=== PATIENT | male | born 1965 | race Caucasian/White ===

== ENCOUNTER 2018-02-03 10:14 | Emergency (ER) | payer OTHER, MEDICAID, MEDICARE ==
[2018-02-03 11:48] LABS: BILIRUBIN,URINE NEGATIVE (NEG); CLARITY,URINE CLOUDY; COLOR,URINE AMBER; GLUCOSE,URINE NEGATIVE (NEG); NITRITE,URINE NEGATIVE (NEG); PH,URINE 5.5; PROTEIN,URINE 30 mg/dL (NEG-TRACE); UROBILINOGEN,URINE 0.2 mg/dL (0.2 mg/dL)
[2018-02-03] MEDS: KETOROLAC 15 MG/ML VIAL. IV (11:56)
[2018-02-03] MEDS: HYDROcodone/APAP 5/325MG 1 TAB TABLET PO (11:57)
[2018-02-03] MEDS: ONDANSETRON ODT 4 MG TAB.RAPDIS. PO (11:57)
[2018-02-03 12:07] LABS: RBC,URINE >40 /HPF (0-2)
[2018-02-03 12:08] LABS: BACTERIA,URINE 0 /HPF (0-FEW); SQUAMOUS EPITHELIAL CELL,UR OCC /LPF; WBC,URINE 0 /HPF (0-4)
[2018-02-03 12:10] LABS: BASO # 0.1 x10^3/uL (0.0-0.2); BASO % 0 % (0-3); EOS % 0 % (0-3); HEMATOCRIT 45.6 % (39.0-53.0); LYMPH # 1.1 x10^3/uL (1.0-4.8); LYMPH % 8 % (24-48); MEAN CORPUSCULAR HEMOGLOBIN 33 pg (25-35); MEAN CORPUSCULAR HGB CONC 35 g/dL (31-37); MEAN CORPUSCULAR VOLUME 94 fL (79-100); MONO # 0.6 x10^3/uL (0.0-1.1); MONO % 4 % (0-9); NEUT # 12.6 x10^3uL (1.8-7.7); NEUT % 88 % (31-73); PLATELET COUNT 227 x10^3/uL (140-400); RED BLOOD COUNT 4.87 x10^6/uL (4.30-5.70); RED CELL DISTRIBUTION WIDTH 13.5 % (11.5-14.5); WHITE BLOOD COUNT 14.3 x10^3/uL (4.0-11.0)
[2018-02-03 12:13] LABS: ADD MAN DIFF? YES
[2018-02-03 12:18] LABS: ANION GAP 12 (6-14); BLOOD UREA NITROGEN 12 mg/dL (8-26); BUN/CREATININE RATIO 15 (6-20); CALCIUM 9.4 mg/dL (8.5-10.1); CARBON DIOXIDE 26 mmol/L (21-32); CHLORIDE 104 mmol/L (98-107); CREATININE 0.8 mg/dL (0.7-1.3); GFR 101.9; GLUCOSE 109 mg/dL (70-99); POTASSIUM 3.9 mmol/L (3.5-5.1); SODIUM 142 mmol/L (136-145)
[2018-02-03 12:24] LABS: ALBUMIN 3.8 g/dL (3.4-5.0); ALK PHOS 102 U/L (46-116); ALT (SGPT) 17 U/L (16-63); AST (SGOT) 17 U/L (15-37); TOTAL BILIRUBIN 0.3 mg/dL (0.2-1.0); TOTAL PROTEIN 7.7 g/dL (6.4-8.2)
[2018-02-03] MEDS ORDERED: IOHEXOL 300 MG/ML 100ML VIAL. IV (12:30)
[2018-02-03] MEDS ORDERED: CONTRAST GIVEN MC (12:45)
[2018-02-03] MEDS: KETOROLAC 30 MG/ML INJ. IV (14:36)
[2018-02-03] MEDS: MORPHINE SULFATE 4 MG/ML DISP.SYRIN. IV (14:36)
[2018-02-03 17:52] LABS: % BANDS 12 % (0-9); % BASOS 1 % (0-3); % LYMPHS 8 % (24-48); % MONOS 4 % (0-10); % SEGS 75 % (35-66); PLT ESTIMATE ADEQUATE (ADEQUATE)
== END 2018-02-03 14:40 | disposition home or self-care (01) ==
LOC: ER 10:14
DX: N20.0 Calculus of kidney (principal); G89.29 Other chronic pain; F20.9 Schizophrenia, unspecified; J44.9 Chronic obstructive pulmonary disease, unspecified; K21.9 Gastro-esophageal reflux disease without esophagitis; N13.2 Hydronephrosis with renal and ureteral calculous obstruction; F17.210 Nicotine dependence, cigarettes, uncomplicated; F31.9 Bipolar disorder, unspecified; Z90.49 Acquired absence of other specified parts of digestive tract; F12.10 Cannabis abuse, uncomplicated; Z88.0 Allergy status to penicillin; Z88.8 Allergy status to other drugs, medicaments and biological substances
CPT/HCPCS: 36415; 74177; 80053; 81001; 85007; 85025; 87086; 96374; 96375; 96376; 99285-25; J1885; J2270; Q0162

== ENCOUNTER 2018-02-06 09:57 | Emergency (ER) | payer OTHER, MEDICAID ==
[2018-02-06] MEDS: IV NORMAL SALINE 1000ML BAG 1,000 ML IV (10:54)
[2018-02-06] MEDS: TAMSULOSIN 0.4 MG CAP.ER.24H. PO (10:54)
[2018-02-06] MEDS: KETOROLAC 30 MG/ML INJ. IV (10:55)
== END 2018-02-06 13:30 | disposition home or self-care (01) ==
LOC: ER 09:57
DX: N20.0 Calculus of kidney (principal); R11.10 Vomiting, unspecified; J44.9 Chronic obstructive pulmonary disease, unspecified; K21.9 Gastro-esophageal reflux disease without esophagitis; G43.909 Migraine, unspecified, not intractable, without status migrainosus; F17.200 Nicotine dependence, unspecified, uncomplicated; Z90.49 Acquired absence of other specified parts of digestive tract; Z88.0 Allergy status to penicillin; Z88.8 Allergy status to other drugs, medicaments and biological substances
CPT/HCPCS: 74018; 96361; 96374; 99284-25; J1885; J7030

== ENCOUNTER 2018-06-23 13:14 | Emergency (ER) | payer OTHER, MEDICAID ==
[~2018-06-23] VITALS: Ht 170.2 cm; Wt 59.0 kg
[~2018-06-23 13:14] MED LIST: DICY10CA3 PO; ESCITALOPRAM OX20 MG PO; FLUT16SP NS; HYDR-971 PO; HYDR25TA PO; LURA40TA PO; MONT10TA9 PO; OMEP40CA5 PO; ONDA4TAB7 PO; TAMS0.4C2 PO; TAMS0.4C97 PO; TOPI25TA7 PO; TRAZ-85 PO
[2018-06-23 13:26] VITALS: BP 108/63
[2018-06-23] MEDS ORDERED: DIPHTH,PERTUSS(ACELL),TET TOX 0.5 ML DISP.SYRIN. VAX IM ONE (13:45)
--- NOTE | 2018-06-23 13:56 | PHYS DOC ---
Past Medical History Past Medical History: COPD, GERD, Migraines Additional Past Medical Histor: Schizo.Effective Disorder,Ulcers,Lazy stomach, Degen disk disease. Past Surgical History: Cholecystectomy, Other Additional Past Surgical Histo: Testicle removed, colonoscopy with biopsy Alcohol Use: Occasionally Drug Use: None Adult General Chief Complaint Chief Complaint: FOOT INJURY PAIN HPI HPI Patient is a 52 year old male who presents with who presents to be evaluated status post falling yesterday, patient states he tripped on a can on soda and fell down 7-10 steps, patient states he does not remember if he passed out or not but states he thinks he passed out for a few seconds. He states he has moderate tenderness 10 right foot pain from the fall. Denies any neck pain, denies any head pain though he states he rolled down the stairs with his head. Patient states he has a history of chronic dizziness and falls a lot. He states his doctor at [facility] is working him up for the dizziness and frequent falls. Patient is a poor historian. Review of Systems Review of Systems Constitutional: Denies fever or chills [] Eyes: Denies change in visual acuity, redness, or eye pain [] HENT: Denies nasal congestion or sore throat [] Respiratory: Denies cough or shortness of breath [] Cardiovascular: No additional information not addressed in HPI [] GI: Denies abdominal pain, nausea, vomiting, bloody stools or diarrhea [] : Denies dysuria or hematuria [] Musculoskeletal: Reports falling 10 steps, right foot pain Integument: Denies rash or skin lesions [] Neurologic: Denies headache, focal weakness or sensory changes [] Endocrine: Denies polyuria or polydipsia [] All other systems were reviewed and found to be within normal limits, except as documented in this note. Current Medications Current Medications Current Medications Medications (Trade) Dose Ordered Sig/Alivia Start Time Stop Time Status Last Admin Dose Admin Acetaminophen/ Hydrocodone Bitart (Lortab 5/325) 2 tab 1X ONCE 06/23/18 16:15 06/23/18 16:16 DC 06/23/18 16:14 2 TAB Diphtheria/ Tetanus/Acell Pertussis (Boostrix) 0.5 ml ONCE ONCE 06/23/18 13:45 06/23/18 13:46 DC 06/23/18 14:49 0.5 ML Naproxen (Naprosyn) 500 mg 1X STAT 06/23/18 16:03 06/23/18 16:07 DC 06/23/18 16:14 500 MG Allergies Allergies Allergies Coded Allergies Type Severity Reaction Last Updated Verified Penicillins Allergy Intermediate Unknown reaction. 02/03/18 Yes ziprasidone Allergy Intermediate 02/03/18 Yes Physical Exam Physical Exam Constitutional: Thin appearing patient, no acute distress, non-toxic appearance. [] HENT: Normocephalic, atraumatic, bilateral external ears normal, oropharynx moist, no oral exudates, nose normal. [] Eyes: PERRLA, EOMI, conjunctiva normal, no discharge. [] Neck: Normal range of motion, no tenderness, supple, no stridor. [] Cardiovascular:Heart rate regular rhythm, no murmur [] Lungs & Thorax: Bilateral breath sounds clear to auscultation [] Abdomen: Bowel sounds normal, soft, no tenderness, no masses, no pulsatile masses. [] Skin: Warm, dry, no erythema, no rash. [] Back: No tenderness, no CVA tenderness. [] Extremities: Right foot with no obvious deformity. Tenderness diffusely on the plantar aspect of the foot, no point tenderness is on the base of the fifth metatarsal or navicular bone. Full range of motion to the right foot and toes. + 2 right pedal pulse. Cap refill less than 2 seconds the right toes. Neurologic: Alert and oriented X 3, normal motor function, normal sensory function, no focal deficits noted. [] Psychologic: Affect normal, judgement normal, mood normal. [] Current Patient Data Vital Signs Vital Signs Date Time Temp Pulse Resp B/P (MAP) Pulse Ox O2 Delivery O2 Flow Rate FiO2 06/23/18 13:26 97.3 96 18 108/63 (78) 96 Room Air 97.3 Lab Values Laboratory Tests Test 06/23/18 14:45 Urine Color Yellow Urine Clarity Clear Urine pH 6.0 Urine Specific Carroll 1.010 Urine Protein Negative mg/dL (NEG-TRACE) Urine Glucose (UA) Negative mg/dL (NEG) Urine Ketones (Stick) Negative mg/dL (NEG) Urine Blood Negative (NEG) Urine Nitrite Negative (NEG) Urine Bilirubin Negative (NEG) Urine Urobilinogen Dipstick 0.2 mg/dL (0.2 mg/dL) Urine Leukocyte Esterase Negative (NEG) Urine RBC Rare /HPF (0-2) Urine WBC 0 /HPF (0-4) Urine Bacteria 0 /HPF (0-FEW) Urine Opiates Screen Neg (NEG) Urine Methadone Screen Neg (NEG) Urine Barbiturates Neg (NEG) Urine Phencyclidine Screen Neg (NEG) Urine Amphetamine/Methamphetamine Neg (NEG) Urine Benzodiazepines Screen Pos (NEG) Urine Cocaine Screen Pos (NEG) Urine Cannabinoids Screen Pos (NEG) Urine Ethyl Alcohol Neg (NEG) EKG EKG [] Radiology/Procedures Radiology/Procedures [] Course & Med Decision Making Course & Med Decision Making Pertinent Labs and Imaging studies reviewed. (See chart for details) This is a 52-year-old male patient presenting to the ED today with complaints of falling down 10 steps. Patient is complaining of right foot pain. He believes that could've upset when he fell yesterday. Right foot x-rays interpreted by radiologist were negative for any acute findings, CT of the head , cervical spine, thoracic, lumbar spine interpreted by radiologist were negative for any acute findings, UA is negative for blood. Patient requested crutches in the ED which are provided but he was informed consent for pain. He continued to insist we have to give him crutches. He was drained and crutch use. He was discharged with cyclobenzaprine and diclofenac as needed for pain. Dragon Disclaimer Dragon Disclaimer This electronic medical record was generated, in whole or in part, using a voice recognition dictation system. Departure Departure Impression: Primary Impression: Fall down steps Additional Impressions: Right foot sprain Closed head injury Disposition: HOME, SELF-CARE Condition: STABLE Referrals: NO PCP (PCP) Follow-up with your doctor at [facility] in one week Patient Instructions: Fall Prevention and Home Safety, Foot Sprain-Brief, Head Injury, Adult Additional Instructions: You were evaluated in the emergency room after falling. Your CT of the head, cervical spine, thoracic and lumbar spine were negative for any acute findings, your right foot x-ray was negative for any acute findings. Ice elevate the affected areas. Take the prescribed medications as needed for pain. Follow-up with your own doctor in one week. Scripts Cyclobenzaprine Hcl (CYCLOBENZAPRINE HCL) 10 Mg Tablet 1 TAB PO TID, #30 TAB Prov: ODESSA BENTLEY BUSINESS CONSULT 06/23/18 Diclofenac Sodium (DICLOFENAC SODIUM) 50 Mg Tablet. 1 TAB PO BID, #30 TAB Prov: ODESSA BENTLEY APRN 06/23/18 Problem Qualifiers Primary Impression: Fall down steps Encounter type: initial encounter Qualified Codes: W10.8XXA - Fall (on) ( from) other stairs and steps, initial encounter Additional Impressions: Right foot sprain Encounter type: initial encounter Qualified Codes: S93.601A - Unspecified sprain of right foot, initial encounter Closed head injury Encounter type: initial encounter Qualified Codes: S09.90XA - Unspecified injury of head, initial encounter ODESSA BENTLEY APRN Jun 23, 2018 13:56
--- NOTE | 2018-06-23 14:33 | RAD ---
History: Right foot pain after falling downstairs previous day. Comparison: None. Findings: AP, lateral, and oblique views of the right foot. No acute fracture or dislocation is identified. Impression: No acute osseous abnormality identified. Electronically signed by: Blake Stokes MD (06/23/2018 2:29 PM) [place] [id number]
--- NOTE | 2018-06-23 15:06 | RAD ---
Examination: CT of the thoracic and lumbar spine without contrast HISTORY: History of fall down stairs, pain COMPARISON: None available technique: Axial CT images of the thoracic and lumbar spine were performed without contrast. Coronal and sagittal reformats are performed Exposure: One or more of the following individualized dose reduction techniques were utilized for this examination: 1. Automated exposure control 2. Adjustment of the mA and/or kV according to patient size 3. Use of iterative reconstruction technique FINDINGS: The thoracic and lumbar vertebral body heights are maintained. The bilateral facets are well aligned. Mild intervertebral disc height loss identified throughout the visualized thoracic and lumbar spine. There is no acute fracture or listhesis identified. Moderate emphysematous changes identified in the lungs partially visualized Moderate aortic atherosclerosis. IMPRESSION: 1. No acute osseous findings. 2. Mild degenerative changes thoracic lumbar spine. Electronically signed by: Mateo Crook MD (06/23/2018 3:03 PM) [id number]
[2018-06-23 15:16] LABS: BILIRUBIN,URINE NEGATIVE (NEG); CLARITY,URINE CLEAR; COLOR,URINE YELLOW; NITRITE,URINE NEGATIVE (NEG); PROTEIN,URINE NEGATIVE (NEG-TRACE); UROBILINOGEN,URINE 0.2 mg/dL (0.2 mg/dL)
--- NOTE | 2018-06-23 15:19 | RAD ---
Examination: CT head and cervical spine without contrast HISTORY: History of headache, neck pain status post fall COMPARISON: None available TECHNIQUE: Axial CT images of the head was performed without contrast. Axial CT images of the cervical spine was performed without contrast. Coronal and sagittal reformats are performed Exposure: One or more of the following individualized dose reduction techniques were utilized for this examination: 1. Automated exposure control 2. Adjustment of the mA and/or kV according to patient size 3. Use of iterative reconstruction technique FINDINGS: There is no evidence of midline shift. There is no acute intracranial bleed or extra-axial fluid collection identified Small hypodensity identified in the right basal ganglia likely old infarct. The visualized lateral ventricles, third ventricle, fourth ventricle appropriate for age. The basal cisterns are uneffaced. There is no acute intracranial bleed or extra-axial fluid collection identified. The visualized paranasal sinuses, right mastoid air cells are clear. Probable surgical changes identified in the left mastoid Moderate intervertebral disc height loss identified at C4-C5, C5-C6, C6-C7 vertebral levels. The bilateral facets are well aligned. Mild multilevel uncovertebral degenerative changes. Emphysematous changes identified in the apical lungs IMPRESSION: 1. No acute intracranial findings. 2. No acute fracture of the cervical spine. Correlate clinically. 3. Moderate degenerative changes cervical spine. Electronically signed by: Mateo Crook MD (06/23/2018 3:15 PM) [id number]
[2018-06-23 15:37] LABS: BARBITURATES NEG (NEG); BENZODIAZEPINES POS (NEG); CANNABINOIDS POS (NEG); COCAINE POS (NEG); METHADONE NEG (NEG); OPIATES NEG (NEG); PHENCYCLIDINE NEG (NEG)
[2018-06-23 15:38] LABS: BACTERIA,URINE 0 /HPF (0-FEW); RBC,URINE RARE /HPF (0-2); WBC,URINE 0 /HPF (0-4)
[2018-06-23 15:39] LABS: AMPHETAMINE/METHAMPHETAMINE NEG (NEG)
[2018-06-23] MEDS ORDERED: NAPROXEN 500 MG TABLET PO STA (16:03)
[2018-06-23] MEDS ORDERED: HYDROcodone/APAP 5/325MG 1 TAB TABLET PO ONE (16:15)
[2018-06-23] MEDS ORDERED: DICL50TA4 PO (16:38)
[2018-06-23] MEDS ORDERED: CYCL10TA2 PO (16:38)
== END 2018-06-23 16:44 | disposition home or self-care (01) ==
LOC: ER 13:14
DX: S93.601A Unspecified sprain of right foot, initial encounter (principal); S09.90XA Unspecified injury of head, initial encounter; K21.9 Gastro-esophageal reflux disease without esophagitis; G43.909 Migraine, unspecified, not intractable, without status migrainosus; J44.9 Chronic obstructive pulmonary disease, unspecified; F25.9 Schizoaffective disorder, unspecified; Z88.0 Allergy status to penicillin; Z88.8 Allergy status to other drugs, medicaments and biological substances; W10.8XXA Fall (on) (from) other stairs and steps, initial encounter; Y93.89 Activity, other specified; Y92.89 Other specified places as the place of occurrence of the external cause; Y99.8 Other external cause status
CPT/HCPCS: 70450; 72125; 72128; 72131; 73630; 80307; 81001; 90471; 90715; 99285-25; G0479